=== PATIENT | female | born 1960 | race American Indian/Alaskan Native ===

== ENCOUNTER 2016-08-03 12:40 | Outpatient (CLI) | payer MEDICARE ==
[2016-08-03] MEDS ORDERED: NACL ONE (13:16)
[2016-08-03 13:24] LABS: Blood Urea Nitrogen 5 mg/dL (7-17)
--- NOTE | 2016-08-03 15:34 | Cat Scan Report ---
CT CHEST WITH CONTRAST HISTORY: Interstitial lung disease, shortness of breath. TECHNIQUE: Helical CT with sagittal and coronal reformatted images. FINDINGS: There are no comparison exams at this facility. Extensive honeycombing is identified throughout both lungs. There is a peripheral and basilar predominance consistent with idiopathic pulmonary fibrosis. There are also areas of traction bronchiectasis mainly in the lower lobes that also supports this finding. There is no evidence for mass, consolidation, pleural effusion or pneumothorax. The thyroid gland is atrophic. The esophagus and mediastinal vessels are unremarkable. Normal heart size. No pericardial effusion. There are multiple mildly enlarged mediastinal lymph nodes in the AP window, subcarinal chain and bilateral hilar chains. A subcarinal lymph node measures 3.4 x 1.8 cm. An AP window lymph node measures up to 3.0 x 1.7 cm. These are probably related to interstitial fibrosis although a neoplastic process is not entirely excluded. The bony thorax is intact. No suspicious bony lesion or fracture. IMPRESSION: Findings consistent with advanced idiopathic pulmonary fibrosis. Enlarged mediastinal lymph nodes as outlined above.
== END 2016-08-03 12:41 | disposition home or self-care (01) ==
LOC: CT 12:40
PROVIDERS: ATTEND Specialist
DX: J84.9 Interstitial pulmonary disease, unspecified (principal); J47.9 Bronchiectasis, uncomplicated; E03.4 Atrophy of thyroid (acquired); R59.9 Enlarged lymph nodes, unspecified; R06.89 Other abnormalities of breathing
CPT/HCPCS: 36415; 71260; 82565; 84520; Q9967

== ENCOUNTER 2016-08-07 11:33 | Outpatient (CLI) | payer MEDICARE ==
--- NOTE | 2016-08-07 13:06 | Fluoroscopy Report ---
BARIUM SWALLOW: History: Gastroesophageal reflux disease. The patient swallows barium without difficulty demonstrating normal coordination. The cervical and thoracic portions of the esophagus demonstrate normal contours and there is normal peristalsis. There is no evidence of a hiatus hernia and no reflux is demonstrated. IMPRESSION: Normal study.
== END 2016-08-07 11:34 | disposition home or self-care (01) ==
LOC: FLUORO 11:33
PROVIDERS: ATTEND Specialist
DX: K21.9 Gastro-esophageal reflux disease without esophagitis (principal)
CPT/HCPCS: 74220

== ENCOUNTER 2017-08-27 09:20 | Outpatient (CLI) | payer MEDICARE ==
--- NOTE | 2017-08-27 10:23 | Cat Scan Report ---
CT CHEST WITHOUT CONTRAST: HISTORY: Pulmonary fibrosis. COMPARISON: 08/03/16. TECHNIQUE: Helical CT in 1.25mm intervals without IV contrast. Sagittal and coronal reformatted images. FINDINGS: Thyroid gland: Not imaged. Tracheobronchial tree: The tracheobronchial tree is patent. Multiple areas of traction bronchiectasis are identified throughout both lung zones which is unchanged. No endobronchial mass or filling defect. Esophagus: Normal. Heart: Normal. Pericardium: Normal. Mediastinum: Scattered borderline mediastinal lymph nodes are unchanged in size and number. One of the largest lymph nodes in the AP window measures 2.8 x 1.5 cm which is unchanged. Lung Fowler: Extensive subpleural fibrotic changes are again noted and appear stable since 08/03/16. There is a peripheral and basilar predominance consistent with idiopathic pulmonary fibrosis. No mass or consolidation has developed. Pleural Spaces: Normal. Musculoskeletal: Normal. IMPRESSION: Findings consistent with idiopathic pulmonary fibrosis which appears stable since 08/03/16.
== END 2017-08-27 09:21 | disposition home or self-care (01) ==
LOC: CT 09:20
PROVIDERS: ATTEND Specialist
DX: J84.10 Pulmonary fibrosis, unspecified (principal); J47.9 Bronchiectasis, uncomplicated
CPT/HCPCS: 71250